=== PATIENT | male | born 1940 | race African-American/Black ===

== ENCOUNTER 2022-04-21 10:20 | Inpatient (IN) | payer OTHER ==
[2022-04-21] MEDS ORDERED: FUROSEMIDE 40 MG/4 ML INJECTABLE VIAL IVPUSH ONE (11:51)
[2022-04-21 11:52] LABS: VENOUS O2 SATURATION 34.7 % (70-80); VENOUS PH 7.305 (7.310-7.410)
[2022-04-21 11:54] LABS: VENOUS PCO2 83.4 mmHg (38-52)
[2022-04-21 11:57] LABS: BASO % 0.5 % (0-2.0); EOS % 3.4 % (0-4.5); HEMATOCRIT 34.8 % (35.4-49); HEMOGLOBIN 11.4 GM/dL (11.7-16.9); LYMPH % 14.5 % (8-40); MCH 26.1 pg (25.7-33.7); MCHC 32.8 g/dl (32.0-35.9); MEAN CELL VOLUME 79.8 fl (80-96); MEAN PLT VOLUME 7.1 fl (7.5-11.1); NEUT % 68.6 % (42.8-82.8); PLATELET COUNT 291 10^3/uL (134-434); RBC 4.36 M/mm3 (4.00-5.60); RDW 17.2 % (11.9-15.9); WHITE BLOOD COUNT 6.5 K/mm3 (4.0-10.0)
[2022-04-21 12:05] LABS: INR 1.16 (0.83-1.09); PROTHROMBIN TIME (PATIENT) 13.4 SEC (9.7-13.0)
[2022-04-21 12:08] LABS: ACTIVATED PTT 42.7 SECONDS (25.2-36.5)
[2022-04-21 12:13] LABS: ALBUMIN 2.8 g/dl (3.4-5.0); CALCIUM 8.5 mg/dL (8.5-10.1)
[2022-04-21 12:16] LABS: CREATININE 1.4 mg/dL (0.55-1.3)
[2022-04-21 12:18] LABS: BILIRUBIN,TOTAL 0.3 mg/dL (0.2-1); TOT PROT 6.9 g/dl (6.4-8.2)
[2022-04-21 12:21] LABS: N-TERMINAL BNP 878.6 pg/ml (5-450)
[2022-04-21] MEDS ORDERED: POTASSIUM CHLORIDE TABS 20 MEQ TABLET.ER (FP) PO ONE ×2 (12:30→12:34)
[2022-04-21] MEDS ORDERED: FUROSEMIDE 40 MG/4 ML INJECTABLE VIAL ONE (12:34)
[2022-04-21 13:39] LABS: EPI CELLS 4 /uL (0-25.1); HYALINE CASTS 1 /uL (0-3.1); URINE APPEARANCE CLEAR; URINE BACTERIA 3 /uL (0-1359); URINE BILIRUBIN NEGATIVE (NEGATIVE); URINE COLOR YELLOW; URINE GLUCOSE (UA) NEGATIVE (NEGATIVE); URINE KETONE NEGATIVE (NEGATIVE); URINE LEUK ESTERASE TRACE (NEGATIVE); URINE NITRITE NEGATIVE (NEGATIVE); URINE PROTEIN TRACE (NEGATIVE); URINE RBC 214 /uL (0-23.9); URINE UROBILINOGEN 0.2 mg/dL (0.2-1.0); URINE WBC 16 /uL (0-25.8)
[2022-04-21 14:36] LABS: ARTERIAL BLD GAS O2 SATURATION 97.4 % (95-98); ARTERIAL BLOOD GAS BASE EXCESS 9.1 mmol/L (-2-2); ARTERIAL BLOOD GAS pH 7.351 (7.350-7.450)
[2022-04-21 14:39] LABS: ALLENS TEST POSITIVE
[2022-04-21 18:09] LABS: ARTERIAL BLD GAS O2 SATURATION 93.8 % (95-98); ARTERIAL BLOOD GAS PO2 73.7 mmHg (80-100); ARTERIAL BLOOD GAS pH 7.364 (7.350-7.450)
[2022-04-21 18:10] LABS: ALLENS TEST POSITIVE
[2022-04-21] MEDS ORDERED: CEFTRIAXONE 1 GM/50 ML BAG ONE (19:51)
[2022-04-21] MEDS: CEFTRIAXONE 1 GM in DEXTROSE 5%-WATER - 50 ML IVPB SCH (20:00)
[2022-04-21] MEDS: HEPARIN NA (PORCINE) 5,000 UNITS/ML 1ML VIAL SQ SCH (22:57)
[2022-04-21] MEDS: NIFEdipine E.R 60 MG TABLET PO SCH (22:57)
[2022-04-21] MEDS: GABAPENTIN 300 MG CAPSULE PO SCH (22:58)
[2022-04-22] MEDS: GABAPENTIN 300 MG CAPSULE PO SCH ×3 (06:30→21:25)
[2022-04-22] MEDS: FUROSEMIDE 40 MG/4 ML INJECTABLE VIAL IVPUSH SCH ×2 (06:30→13:01)
[2022-04-22 07:37] LABS: BASO % 0.6 % (0-2.0); EOS % 5.5 % (0-4.5); HEMATOCRIT 36.4 % (35.4-49); HEMOGLOBIN 11.9 GM/dL (11.7-16.9); LYMPH % 17.9 % (8-40); MCH 26.1 pg (25.7-33.7); MCHC 32.7 g/dl (32.0-35.9); MEAN CELL VOLUME 79.8 fl (80-96); MEAN PLT VOLUME 7.7 fl (7.5-11.1); MONO % 12.7 % (3.8-10.2); NEUT % 63.3 % (42.8-82.8); PLATELET COUNT 284 10^3/uL (134-434); RBC 4.56 M/mm3 (4.00-5.60); RDW 17.3 % (11.9-15.9); WHITE BLOOD COUNT 6.6 K/mm3 (4.0-10.0)
[2022-04-22 07:57] LABS: ALBUMIN 2.8 g/dl (3.4-5.0); CALCIUM 8.5 mg/dL (8.5-10.1)
[2022-04-22 07:58] LABS: BLOOD UREA NITROGEN 14.6 mg/dL (7-18)
[2022-04-22 07:59] LABS: CREATININE 1.2 mg/dL (0.55-1.3)
[2022-04-22 08:00] LABS: BILIRUBIN,TOTAL 0.3 mg/dL (0.2-1)
[2022-04-22] MEDS: POLYETHYLENE GLYCOL (HEALTHYLAX) 3350 17 GM PACKET PO SCH (09:54)
[2022-04-22] MEDS: SENNOSIDES 8.6MG TABLET (FP) PO SCH ×2 (09:54→21:27)
[2022-04-22] MEDS: ASPIRIN 81 MG CHEWABLE TABLETS PO SCH (09:54)
[2022-04-22] MEDS: metoPROLOL SUCCINATE 25 MG TAB.SR.24H (FP) PO SCH ×2 (09:54→21:26)
[2022-04-22] MEDS: HEPARIN NA (PORCINE) 5,000 UNITS/ML 1ML VIAL SQ SCH (09:54)
[2022-04-22] MEDS: NIFEdipine E.R 60 MG TABLET PO SCH ×2 (09:54→21:28)
[2022-04-22] MEDS: TAMSULOSIN HCL 0.4 MG CAP PO SCH (09:54)
[2022-04-22] MEDS: CEFTRIAXONE 1 GM in DEXTROSE 5%-WATER - 50 ML IVPB SCH (09:54)
[2022-04-22] MEDS: FINASTERIDE 5 MG TABLET (FP) PO SCH (09:54)
[2022-04-22] MEDS ORDERED: ACETAMINOPHEN 325 MG TABLET (FP) PO PRN (13:04)
[2022-04-22 15:53] VITALS: BMI 23.1
[2022-04-22] MEDS: ACETAMINOPHEN 325 MG TABLET (FP) PO PRN (17:09)
[2022-04-22] MEDS: LOSARTAN POTASSIUM 50 MG TABLET PO SCH (17:09)
[2022-04-23] MEDS: FUROSEMIDE 40 MG/4 ML INJECTABLE VIAL IVPUSH SCH ×2 (06:29→15:11)
[2022-04-23] MEDS: GABAPENTIN 300 MG CAPSULE PO SCH ×3 (06:29→21:01)
[2022-04-23 07:20] LABS: HEMOGLOBIN 11.7 GM/dL (11.7-16.9); MCH 25.2 pg (25.7-33.7); MCHC 31.7 g/dl (32.0-35.9); MEAN CELL VOLUME 79.6 fl (80-96); MEAN PLT VOLUME 7.6 fl (7.5-11.1); PLATELET COUNT 337 10^3/uL (134-434); RBC 4.65 M/mm3 (4.00-5.60); RDW 17.7 % (11.9-15.9); WHITE BLOOD COUNT 6.8 K/mm3 (4.0-10.0)
[2022-04-23 07:33] LABS: BLOOD UREA NITROGEN 11.6 mg/dL (7-18); CALCIUM 8.7 mg/dL (8.5-10.1)
[2022-04-23 07:35] LABS: ALBUMIN 2.9 g/dl (3.4-5.0); MAGNESIUM 1.7 mg/dL (1.8-2.4)
[2022-04-23 07:36] LABS: PHOSPHOROUS 3.3 mg/dL (2.5-4.9)
[2022-04-23 07:37] LABS: CREATININE 1.1 mg/dL (0.55-1.3)
[2022-04-23 07:39] LABS: BILIRUBIN,TOTAL 0.4 mg/dL (0.2-1); TOT PROT 7.1 g/dl (6.4-8.2)
[2022-04-23] MEDS ORDERED: MAGNESIUM OXIDE 400 MG TABLET (FP) PO ONE (07:48)
[2022-04-23] MEDS: ASPIRIN 81 MG CHEWABLE TABLETS PO SCH (08:59)
[2022-04-23] MEDS: TAMSULOSIN HCL 0.4 MG CAP PO SCH (08:59)
[2022-04-23] MEDS: metoPROLOL SUCCINATE 25 MG TAB.SR.24H (FP) PO SCH ×2 (09:00→21:01)
[2022-04-23] MEDS: FINASTERIDE 5 MG TABLET (FP) PO SCH (09:00)
[2022-04-23] MEDS: LOSARTAN POTASSIUM 50 MG TABLET PO SCH (09:00)
[2022-04-23] MEDS: SENNOSIDES 8.6MG TABLET (FP) PO SCH ×2 (09:00→21:01)
[2022-04-23] MEDS: NIFEdipine E.R 60 MG TABLET PO SCH ×2 (09:01→21:01)
[2022-04-23] MEDS: POLYETHYLENE GLYCOL (HEALTHYLAX) 3350 17 GM PACKET PO SCH (09:01)
[2022-04-23] MEDS: ENOXAPARIN NA (PORCINE) 40 MG/0.4 ML DISP.SYRIN SQ SCH (09:02)
[2022-04-23] MEDS: ACETAMINOPHEN 325 MG TABLET (FP) PO PRN (11:35)
[2022-04-24] MEDS: FUROSEMIDE 40 MG/4 ML INJECTABLE VIAL IVPUSH SCH (06:01)
[2022-04-24] MEDS: GABAPENTIN 300 MG CAPSULE PO SCH ×3 (06:01→21:11)
[2022-04-24 07:42] LABS: HEMATOCRIT 37.3 % (35.4-49); MCH 25.5 pg (25.7-33.7); MCHC 32.1 g/dl (32.0-35.9); MEAN CELL VOLUME 79.5 fl (80-96); MEAN PLT VOLUME 7.7 fl (7.5-11.1); PLATELET COUNT 328 10^3/uL (134-434); RBC 4.69 M/mm3 (4.00-5.60); RDW 17.4 % (11.9-15.9); WHITE BLOOD COUNT 7.5 K/mm3 (4.0-10.0)
[2022-04-24 07:46] LABS: ALBUMIN 2.9 g/dl (3.4-5.0); BLOOD UREA NITROGEN 9.1 mg/dL (7-18); CALCIUM 8.4 mg/dL (8.5-10.1)
[2022-04-24 07:47] LABS: MAGNESIUM 1.5 mg/dL (1.8-2.4)
[2022-04-24 07:49] LABS: CREATININE 0.9 mg/dL (0.55-1.3); PHOSPHOROUS 2.7 mg/dL (2.5-4.9)
[2022-04-24 07:51] LABS: BILIRUBIN,TOTAL 0.4 mg/dL (0.2-1); TOT PROT 7.2 g/dl (6.4-8.2)
[2022-04-24] MEDS: TAMSULOSIN HCL 0.4 MG CAP PO SCH (08:00)
[2022-04-24] MEDS ORDERED: PREGABALIN 50 MG CAPSULE PO SCH (08:00)
[2022-04-24] MEDS ORDERED: MAGNESIUM SULF 50% (8.12 MEQ/2 ML-1 GM VIAL) IVPB ONE (08:29)
[2022-04-24] MEDS: POTASSIUM CHLORIDE TABS 20 MEQ TABLET.ER (FP) PO SCH ×3 (09:32→21:11)
[2022-04-24] MEDS: FINASTERIDE 5 MG TABLET (FP) PO SCH (09:33)
[2022-04-24] MEDS: ASPIRIN 81 MG CHEWABLE TABLETS PO SCH (09:33)
[2022-04-24] MEDS: NIFEdipine E.R 60 MG TABLET PO SCH ×2 (09:33→21:11)
[2022-04-24] MEDS: metoPROLOL SUCCINATE 25 MG TAB.SR.24H (FP) PO SCH ×2 (09:34→21:11)
[2022-04-24] MEDS: POLYETHYLENE GLYCOL (HEALTHYLAX) 3350 17 GM PACKET PO SCH (09:38)
[2022-04-24] MEDS: LOSARTAN POTASSIUM 50 MG TABLET PO SCH (09:38)
[2022-04-24] MEDS: ENOXAPARIN NA (PORCINE) 40 MG/0.4 ML DISP.SYRIN SQ SCH (09:38)
[2022-04-24] MEDS: SENNOSIDES 8.6MG TABLET (FP) PO SCH ×2 (09:38→21:11)
[2022-04-24] MEDS ORDERED: CELECOXIB 200 MG CAPSULE PO SCH (10:00)
[2022-04-25] MEDS: GABAPENTIN 300 MG CAPSULE PO SCH ×3 (06:17→21:03)
[2022-04-25 07:59] LABS: HEMATOCRIT 33.2 % (35.4-49); HEMOGLOBIN 10.7 GM/dL (11.7-16.9); MCH 25.6 pg (25.7-33.7); MCHC 32.2 g/dl (32.0-35.9); MEAN CELL VOLUME 79.5 fl (80-96); MEAN PLT VOLUME 7.6 fl (7.5-11.1); PLATELET COUNT 300 10^3/uL (134-434); RBC 4.17 M/mm3 (4.00-5.60); RDW 17.1 % (11.9-15.9); WHITE BLOOD COUNT 5.4 K/mm3 (4.0-10.0)
[2022-04-25 08:23] LABS: ALBUMIN 2.6 g/dl (3.4-5.0); CALCIUM 8.2 mg/dL (8.5-10.1)
[2022-04-25 08:26] LABS: CREATININE 0.8 mg/dL (0.55-1.3)
[2022-04-25 08:28] LABS: BILIRUBIN,TOTAL 0.4 mg/dL (0.2-1); TOT PROT 6.4 g/dl (6.4-8.2)
[2022-04-25] MEDS: ENOXAPARIN NA (PORCINE) 40 MG/0.4 ML DISP.SYRIN SQ SCH (10:36)
[2022-04-25] MEDS: TAMSULOSIN HCL 0.4 MG CAP PO SCH (10:37)
[2022-04-25] MEDS: SENNOSIDES 8.6MG TABLET (FP) PO SCH ×2 (10:37→21:03)
[2022-04-25] MEDS: metoPROLOL SUCCINATE 25 MG TAB.SR.24H (FP) PO SCH ×2 (10:37→21:03)
[2022-04-25] MEDS: FINASTERIDE 5 MG TABLET (FP) PO SCH (10:38)
[2022-04-25] MEDS: TORSEMIDE 20 MG TABLET (FP) PO SCH ×2 (10:38→14:58)
[2022-04-25] MEDS: LOSARTAN POTASSIUM 50 MG TABLET PO SCH (10:38)
[2022-04-25] MEDS: ASPIRIN 81 MG CHEWABLE TABLETS PO SCH (10:39)
[2022-04-25] MEDS: POTASSIUM CHLORIDE TABS 20 MEQ TABLET.ER (FP) PO SCH ×2 (10:39→21:03)
[2022-04-25] MEDS: NIFEdipine E.R 60 MG TABLET PO SCH ×2 (10:44→21:03)
[2022-04-25] MEDS: POLYETHYLENE GLYCOL (HEALTHYLAX) 3350 17 GM PACKET PO SCH (10:50)
[2022-04-26] MEDS: GABAPENTIN 300 MG CAPSULE PO SCH ×2 (05:21→13:34)
[2022-04-26] MEDS: TORSEMIDE 20 MG TABLET (FP) PO SCH ×2 (05:21→13:34)
[2022-04-26 07:30] LABS: HEMOGLOBIN 11.4 GM/dL (11.7-16.9); MCH 25.2 pg (25.7-33.7); MCHC 31.8 g/dl (32.0-35.9); MEAN CELL VOLUME 79.2 fl (80-96); MEAN PLT VOLUME 7.4 fl (7.5-11.1); PLATELET COUNT 325 10^3/uL (134-434); RBC 4.54 M/mm3 (4.00-5.60); RDW 17.6 % (11.9-15.9); WHITE BLOOD COUNT 6.2 K/mm3 (4.0-10.0)
[2022-04-26 08:10] LABS: CHLORIDE 100 mmol/L (98-107); SODIUM 149 mmol/L (136-145)
[2022-04-26 08:12] LABS: BLOOD UREA NITROGEN 11.4 mg/dL (7-18)
[2022-04-26 08:15] LABS: SGOT/AST 20 U/L (15-37); SGPT/ALT 21 U/L (13-61)
[2022-04-26 08:17] LABS: BILIRUBIN,TOTAL 0.4 mg/dL (0.2-1); TOT PROT 7.1 g/dl (6.4-8.2)
[2022-04-26 08:54] LABS: CALCIUM 8.3 mg/dL (8.5-10.1)
[2022-04-26 08:56] LABS: CO2 41 mmol/L (21-32); GLUCOSE,RANDOM 105 mg/dL (74-106)
[2022-04-26 08:59] LABS: CREATININE 0.9 mg/dL (0.55-1.3)
[2022-04-26] MEDS: SENNOSIDES 8.6MG TABLET (FP) PO SCH (09:00)
[2022-04-26] MEDS: TAMSULOSIN HCL 0.4 MG CAP PO SCH (09:00)
[2022-04-26] MEDS: NIFEdipine E.R 60 MG TABLET PO SCH (09:01)
[2022-04-26] MEDS: FINASTERIDE 5 MG TABLET (FP) PO SCH (09:01)
[2022-04-26] MEDS: ASPIRIN 81 MG CHEWABLE TABLETS PO SCH (09:02)
[2022-04-26] MEDS: LOSARTAN POTASSIUM 50 MG TABLET PO SCH (09:02)
[2022-04-26] MEDS: metoPROLOL SUCCINATE 25 MG TAB.SR.24H (FP) PO SCH (09:02)
[2022-04-26] MEDS: POTASSIUM CHLORIDE TABS 20 MEQ TABLET.ER (FP) PO SCH ×3 (09:02→13:34)
[2022-04-26 09:03] LABS: ALK PHOS 153 U/L (45-117); ANION GAP 8 MMOL/L (8-16)
[2022-04-26] MEDS: POLYETHYLENE GLYCOL (HEALTHYLAX) 3350 17 GM PACKET PO SCH (09:03)
[2022-04-26] MEDS: ENOXAPARIN NA (PORCINE) 40 MG/0.4 ML DISP.SYRIN SQ SCH (09:05)
[2022-04-26] MEDS ORDERED: POTASSIUM PHOSPHATE 15 MM in SODIUM CHLORIDE 250 ML IVPB ONE ×2 (10:45→11:00)
[2022-04-26 11:23] VITALS: BP 146/69; PULSE 52; RESP 17; TEMP 98.3
[2022-04-26] MEDS ORDERED: MAGNESIUM 1GM/D5W 100ML - 100 ML IVPB IVPB ONE (11:29)
[2022-04-26] MEDS ORDERED: MAGNESIUM OXIDE 400 MG TABLET (FP) PO ONE (12:14)
[2022-04-26] MEDS: ACETAMINOPHEN 325 MG TABLET (FP) PO PRN (13:36)
[2022-04-26] MEDS ORDERED: guaiFENesin 200 MG/10 ML 10 ML UNIT-DOSE CUPS PO PRN (13:45)
== END 2022-04-26 17:38 | disposition home health service (06) | DRG 291 ==
LOC: JER 10:20 → JERBED 11:49 → JICU 21:50 → J2W 04-23 17:12
PROVIDERS: ADMIT Internal Medicine; ATTEND Internal Medicine
DX: I11.0 Hypertensive heart disease with heart failure (principal); I50.33 Acute on chronic diastolic (congestive) heart failure; N17.9 Acute kidney failure, unspecified; I44.0 Atrioventricular block, first degree; D64.9 Anemia, unspecified; I25.10 Atherosclerotic heart disease of native coronary artery without angina pectoris; I45.10 Unspecified right bundle-branch block; N40.0 Benign prostatic hyperplasia without lower urinary tract symptoms; R73.03 Prediabetes; M45.9 Ankylosing spondylitis of unspecified sites in spine; M54.12 Radiculopathy, cervical region; E87.6 Hypokalemia; E83.42 Hypomagnesemia; M10.9 Gout, unspecified; G89.29 Other chronic pain; Z95.1 Presence of aortocoronary bypass graft; Z85.51 Personal history of malignant neoplasm of bladder; Z95.2 Presence of prosthetic heart valve
CPT/HCPCS: 0241U-QW; 36415; 36600; 71045-TC-FY; 80053; 81003; 82803; 83735; 83880; 84100; 84132; 84439; 84443; 84484; 85025; 85027; 85610; 85730; 87040; 93005; 93010; 94761; 97116-GP; 97161-GP; 99285-25; J1644